=== PATIENT | female | born 1945 | race Caucasian/White ===

== ENCOUNTER 2020-02-16 06:15 | Outpatient (CLI) | payer MEDICARE ==
[2020-02-16 10:36] LABS: Platelet Count 106 10x3/uL (130-400)
[2020-02-16 10:37] LABS: #Eosinphils 0.1 10x3/uL (0.0-0.5); #Monocytes 0.4 10x3/uL (0.0-1.1); #Neutrophils 2.7 10x3/uL (1.5-8.4); %Basophils 0.9 % (0.0-2.0); %Eosinophils 1.4 % (0.0-6.0); %Lymphocytes 23.8 % (18.0-47.0); %Monocytes 9.7 % (0.0-10.0); %Neutrophils 63.7 % (40.0-75.0); Hemoglobin 12.6 g/dL (12.0-16.0); Mean Corpuscular HGB CONC 32.9 G/DL (32.0-36.0); Mean Corpuscular Hemoglobin 32.1 PG (27.0-33.0); Mean Corpuscular Volume 97.5 fl (80.0-100.0); Mean Platelet Volume 10.2 fl (7.4-10.4); RBC Distribution Width 13.1 % (11.5-14.5); Red Blood Cell (RBC) Count 3.93 10x6/uL (3.90-5.20); White Blood Cell (WBC) Count 4.2 10x3/uL (4.5-11.0)
[2020-02-16 10:52] LABS: Anion Gap 14 mmol/L (10-20); BUN (Urea Nitrogen) 19 mg/dL (9.8-20.1); Calc. Creatinine Clearance 0 mL/min (70-130); Calcium 9.5 mg/dL (7.8-10.44); Carbon Dioxide 27 mmol/L (23-31); Chloride 104 mmol/L (98-107); Glucose 96 mg/dL (83-110); INR-International Normal Ratio 1.1; PTT 30.9 sec (22.0-33.0); Prothrombin Time 11.5 sec (9.5-12.1); Sodium 140 mmol/L (136-145)
[2020-02-16 11:02] LABS: Platelet Morphology Comment Appears Decreased; RBC Morphology Normal
[2020-02-16 17:07] LABS: SARS-CoV-2 MS2 Positive; SARS-CoV-2 N Gene Negative; SARS-CoV-2 S Gene Negative; SARS-CoV-2 by NAA Not Detected (NotDetected); SARS-CoV-2 orf1ab Negative
== END 2020-02-16 06:16 | disposition home or self-care (01) ==
LOC: CSHLAB 06:15
PROVIDERS: ATTEND Internal Medicine Cardiovascular Disease
DX: Z01.812 Encounter for preprocedural laboratory examination (principal); Z20.822 Contact with and (suspected) exposure to COVID-19; I48.19 Other persistent atrial fibrillation
CPT/HCPCS: 80048; 85025; 85610; 85730; 87635; U0003

== ENCOUNTER 2022-02-26 15:13 | Outpatient (CLI) | payer MEDICARE | END 2022-02-26 15:14 | disposition home or self-care (01) | LOC: CSHRAD 15:13 | PROVIDERS: ATTEND Nurse Practitioner | DX: R06.02 Shortness of breath (principal); I48.0 Paroxysmal atrial fibrillation; J90 Pleural effusion, not elsewhere classified | CPT/HCPCS: 71046 ==